=== PATIENT | male | born 1995 | race Two or more races ===

== ENCOUNTER 2021-08-08 22:39 | Emergency (ER) | payer SELFPAY ==
[~2021-08-08] VITALS: Ht 177.8 cm; Wt 10.0 kg
[2021-08-09] MEDS ORDERED: fentaNYL CITRATE 100 MCG/2 ML VL IV ONE (03:15)
[2021-08-09] MEDS ORDERED: MIDAZOLAM HCL 5 MG/ML-1ML VIAL IV ONE (03:15)
[2021-08-09 05:52] VITALS: BP 129/72
== END 2021-08-09 07:04 | disposition short-term general hospital (02) ==
LOC: ER 22:39
DX: S43.014A Anterior dislocation of right humerus, initial encounter (principal); J45.909 Unspecified asthma, uncomplicated; X58.XXXA Exposure to other specified factors, initial encounter; Y93.89 Activity, other specified; Y92.89 Other specified places as the place of occurrence of the external cause; Y99.8 Other external cause status
CPT/HCPCS: 23650; 73030; 99285; J2250; J3010

== ENCOUNTER 2022-04-10 22:17 | Emergency (ER) | payer SELFPAY ==
[~2022-04-10] VITALS: Ht 177.8 cm; Wt 91.1 kg
[2022-04-11] MEDS ORDERED: EPIN0.3I27 IJ (06:18)
[2022-04-11] MEDS ORDERED: PRED20TA2 PO (06:19)
[2022-04-11 06:40] VITALS: BP 124/64
== END 2022-04-11 06:45 | disposition home or self-care (01) ==
LOC: EDBD 22:17 → ER 22:19
DX: T78.40XA Allergy, unspecified, initial encounter (principal); R06.2 Wheezing; X58.XXXA Exposure to other specified factors, initial encounter